=== PATIENT | female | born 1960 | race Caucasian/White ===

== ENCOUNTER 2016-03-11 12:56 | Emergency (ER) | payer MEDICARE, OTHER ==
[2016-03-11 13:07] VITALS: TEMP 97.9; BMI 27.1
[2016-03-11] MEDS ORDERED: KETOROLAC TROMETHAMINE 10 MG TAB PO ONE (13:29)
--- NOTE | 2016-03-11 13:30 | EDPRACDOC ---
- General Information Mode Of Arrival: Car - History of Present Illness Onset: friday HPI: PATIENT HAS HAD SHARP CHEST AND BACK PAIN FOR DAYS. WORSE WITH A DEEP BREATH. NO COUGH. NO FEVER. NO EXERTIONAL IN NATURE. NO TRAUMA. PATIENT HAS MS AND TAKES VALIUM DAILY. PATIENT DOES HAVE COPD AND TAKES ADVAIR Pain Location: Reports: Upper, Thoracic Pain Radiates To: Reports: None Pain Caused By: Reports: Spontaneous Currently ?: No Pain Severity: Reports: Mild Pain Quality: Reports: Aching, Sharp, Stabbing Worsened By: Reports: Breathing Associated Signs and Symptoms: Reports: None <Sam Andujar - Last Filed: 03/11/16 15:27> <Coral Harley - Last Filed: 03/11/16 17:44> - General Information Chief Complaint: Back Pain Stated Complaint: MID BACK PAIN WITH PAIN INTO CHEST CAN'T BREATH Time Seen by Provider: 03/11/16 13:24 Home Medications: Home Medications Amantadine [Symmetrel] 100 mg PO BID 06/15/12 Diazepam [Valium] 10 mg PO TID 06/15/12 Pantoprazole Sodium [Protonix] 40 mg PO DAILY #30 tab 10/25/13 Albuterol Sulfate [Ventolin Hfa] 1 - 2 puff INH Q4H PRN #1 each 03/11/16 Dimethyl Fumarate [Tecfidera] 240 mg PO BID 03/11/16 Fluticasone/Salmeterol [Advair 500-50] 1 puff INH BID 03/11/16 Hydrocodone Bit/Acetaminophen [Mazama 7.5-325 Tablet] 1 tab PO Q6H PRN 03/11/16 Ketorolac Tromethamine [Toradol] 10 mg PO Q6H PRN #20 tab 03/11/16 Allergies/Adverse Reactions: Allergies Allergy/AdvReac Type Severity Reaction Status Date / Time acetaminophen [From Percocet] Allergy Nausea/Vomi Verified 03/11/16 13:03 ting cortisone Allergy Rash-Genera Verified 03/11/16 13:03 lized oxycodone HCl [From Percocet] Allergy Nausea/Vomi Verified 03/11/16 13:03 ting promethazine HCl Allergy Confusion Verified 03/11/16 13:03 [From Phenergan] tetracycline [Tetracycline] Allergy Rash-Genera Verified 03/11/16 13:03 lized venom-honey bee Allergy Unknown Verified 03/11/16 13:03 [bee venom (honey bee)] ED Past Medical History - History Reviewed Yes Nurses notes reviewed and agree except as marked Travel Outside of [place] in the Last 3 Months?: No - Patient Medical History Neurological History: Reports: Multiple Sclerosis Respiratory History: Reports: Asthma Systemic History: Denies: Cancer Additional Past Medical History: MULTIPLE SCLEROSIS Surgical History: Reports: Hysterectomy, Hernia Surgery, Tonsillectomy/ Adnoidectomy - Social Medical History Smoking Status: Never smoker ETOH: None Substance Abuse: None Lives With: Family Lives In: Home <Sam Andujar - Last Filed: 03/11/16 15:27> EDM Review of Systems - Review of Systems ROS Negative Except as Marked: Yes All systems reviewed and were negative except as marked Constitutional: No Symptoms Reported. negative: Fever, Chills, Weakness, Fatigue, Loss of Appetite Eyes: No Symptoms Reported. negative: Redness, Blurred Vision, Double Vision, Discharge, Pain, Light Sensitive, Photophobia Ears: No Symptoms Reported. negative: Pain, Hearing Loss, Drainage, Ear Pulling Throat: No Symptoms Reported. negative: Pain, Swelling Nose: No Symptoms Reported. negative: Congestion, Bleeding, Discharge, Injection, Swelling, Deformity, Ecchymosis, Tender, Abrasion, Laceration Mouth: No Symptoms Reported. negative: Pain, Drooling Respiratory: Shortness of Breath. negative: Barky Cough, Brassy Cough, Cough, Hemoptysis, Wheezing Cardiovascular: Chest Pain. negative: Cyanosis, Edema, Orthopnea, Palpitations , PND, Syncope, Skin Mottling Gastrointestinal: No Symptoms Reported. negative: Pain, Constipation, Nausea, Vomiting, Diarrhea, Melena, Formula Intolerance Genitourinary: No Symptoms Reported. negative: Dysuria, Hematuria, Frequency, Discharge, Bleeding, Testicular Pain, Neurological: No Symptoms Reported. negative: Headache, Dizziness, Seizure, Numbness, Weakness, Speech Difficulty, Gait Difficulty Musculoskeletal: No Symptoms Reported. negative: Neck, Chestwall, Ribs, Back, Shoulder, Arm, Elbow, Forearm, Wrist, Hand, Pelvis, Hip, Femur, Knee, Leg, Ankle , Foot Integumentary: No Symptoms Reported. negative: Itching, Rash, Bruising, Wound Allergic/Immunologic: No Symptoms Reported. negative: Hives, Itching Hematologic: No Symptoms Reported. negative: Lymphadenopathy, Easy Bruising, Easy Bleeding Endocrine: No Symptoms Reported. negative: Weight Gain, Weight Loss Psychiatric: No Symptoms Reported. negative: Anxiety, Depression, Hallucinations, Insomnia, Suicidal <Sam Andujar - Last Filed: 03/11/16 15:27> - Physical Exam Constitutional: Alert (Awake), No apparent distress Oriented to: Time, Person, Place Last recorded Vital Signs: Last Vital Signs Temp 97.9 F 03/11/16 13:04 Pulse 85 03/11/16 13:04 Resp 18 03/11/16 13:04 BP 143/92 03/11/16 13:04 Pulse Ox 95 03/11/16 13:04 Oxygen Pulse Oxygen Saturation 95 O2 Device Room Air Oxygen Flow Rate Fraction of Inspired Oxygen ( FIO2) - HEENT Head: Normal ( normocephalic) Eye Exam: Normal (PERRL, EOMI, Sclera white) Oropharynx: Normal (Pharynx:Moist without exudate,Gums-no swelling) Tympanic Membrane: Normal ENT EAC: Normal TMJ: Normal Nose: No Symptoms Reported (septum midline) Neck: Normal (FROM, trachea at midline) - Respiratory/Cardiovascular Respiratory: Normal - CTA (BBS clear to auscultation without adventitious sounds ) Cardiovascular: Normal (RRR without murmur, gallop or rub) - GI Auscultation: Normal (NABS) Palpation: Normal (Soft,No rebound or guarding, non distended) Tenderness: Non tender Jorgensen's Sign: Negative - Musculoskeletal Back: Normal (Non-Tender) Extremities: Normal (Normal tone, Pulses 2+ No cyanosis or edema, FROM) - Integumentary Skin: Normal, Warm, Dry Lymphatics: Normal (no adenopathy) - Neurologic Memory Impaired: Normal Motor Function: Normal (Normal tone, Pulses 2+ No cyanosis or edema, FROM) Cranial Nerve: Normal (CN II-X11 intact sensation, strength 5/5) Cerebellar: Normal Mood Description: Normal Perception: Normal <Sam Andujar - Last Filed: 03/11/16 15:27> - Physical Exam Last recorded Vital Signs: Last Vital Signs Temp 97.9 F 03/11/16 13:04 Pulse 77 03/11/16 16:34 Resp 20 03/11/16 16:34 BP 133/74 01/23/17 16:34 Pulse Ox 97 03/11/16 16:34 Oxygen Pulse Oxygen Saturation 97 O2 Device Room Air Oxygen Flow Rate Fraction of Inspired Oxygen ( FIO2) <Coral Harley Thanh - Last Filed: 03/11/16 17:44> - EKG EKG #1 EKG Time: 13:21 -: Yes EKG interpreted by me Rate: bpm: 77 [place]: Normal Rhythm: NSR Block: None Hypertrophy: None ST: Normal <AndujarSam - Last Filed: 03/11/16 15:27> - Results 03/11/16 13:59 03/11/16 13:59 WBC 6.7 xk/uL (3.8-10.8) 03/11/16 13:59 RBC 4.78 xM/uL (4.20-5.40) 03/11/16 13:59 Hgb 14.8 g/dL (12.0-16.0) 03/11/16 13:59 Hct 43.4 % (36-47) 03/11/16 13:59 MCV 91 fL (81-99) 03/11/16 13:59 MCH 30.9 pg (27-32) 03/11/16 13:59 MCHC 34.1 g/dl (33-36) 03/11/16 13:59 RDW 13.2 % (11.5-14.5) 03/11/16 13:59 Plt Count 158 xk/uL (130-400) 03/11/16 13:59 MPV 10.1 fL (7.4-10.4) 03/11/16 13:59 Neut % (Auto) 73.3 % (45-76) 03/11/16 13:59 Lymph % (Auto) 18.9 % (17-44) 03/11/16 13:59 Burt % (Auto) 5.8 % (3-10) 03/11/16 13:59 Eos % (Auto) 0.6 % (0-5) 03/11/16 13:59 Baso % (Auto) 1.4 % (0-2) 03/11/16 13:59 Absolute Neuts (auto) 4.89 xk/uL (1.7-8.2) 03/11/16 13:59 Absolute Lymphs (auto) 1.21 xk/uL (0.65-4.75) 03/11/16 13:59 PT 10.9 SEC (9.2-11.2) 03/11/16 13:59 INR 1.1 03/11/16 13:59 APTT 25.6 SEC (22-35) 03/11/16 13:59 D-Dimer Quant (PE/DVT) 790 ng/mL (<500) H 03/11/16 13:59 Sodium 142 mEq/L (137-146) 03/11/16 13:59 Potassium 4.8 mEq/L (3.5-5.1) 03/11/16 13:59 Chloride 101 mEq/L (98-107) 03/11/16 13:59 Carbon Dioxide 31 mMOL/L (22-33) 03/11/16 13:59 Anion Gap 15 mEq/L (8-16) 03/11/16 13:59 BUN 17 MG/DL (7-17) 03/11/16 13:59 Creatinine 0.80 MG/DL (0.52-1.04) 03/11/16 13:59 Estimated GFR (MDRD) > 60 mL/min (>=60) 03/11/16 13:59 Glucose 84 MG/DL (70-99) 03/11/16 13:59 Calculated Osmolality 274 MOs/Kg (270-290) 03/11/16 13:59 Calcium 10.2 MG/DL (8.4-10.2) 03/11/16 13:59 Total Bilirubin 0.5 MG/DL (0.2-1.3) 03/11/16 13:59 AST 41 IU/L (14-36) H 03/11/16 13:59 ALT 54 IU/L (9-52) H 03/11/16 13:59 Alkaline Phosphatase 106 IU/L (38-126) 03/11/16 13:59 Creatine Kinase 84 IU/L (30-134) 03/11/16 13:59 Troponin I < 0.01 ng/mL (<.04) 03/11/16 13:59 Total Protein 7.8 G/DL (6.3-8.2) 03/11/16 13:59 Albumin 4.7 G/DL (3.5-5.0) 03/11/16 13:59 Lab Results 03/11/16 03/11/16 03/11/16 13:59 13:59 13:59 WBC 6.7 RBC 4.78 Hgb 14.8 Hct 43.4 MCV 91 MCH 30.9 MCHC 34.1 RDW 13.2 Plt Count 158 MPV 10.1 Neut % (Auto) 73.3 Lymph % (Auto) 18.9 Burt % (Auto) 5.8 Eos % (Auto) 0.6 Baso % (Auto) 1.4 Absolute Neuts (auto) 4.89 Absolute Lymphs (auto) 1.21 PT 10.9 INR 1.1 APTT 25.6 D-Dimer Quant (PE/DVT) Sodium 142 Potassium 4.8 Chloride 101 Carbon Dioxide 31 Anion Gap 15 BUN 17 Creatinine 0.80 Estimated GFR (MDRD) > 60 Glucose 84 Calculated Osmolality 274 Calcium 10.2 Total Bilirubin 0.5 AST 41 H ALT 54 H Alkaline Phosphatase 106 Creatine Kinase 84 Troponin I < 0.01 Total Protein 7.8 Albumin 4.7 03/11/16 13:59 WBC RBC Hgb Hct MCV MCH MCHC RDW Plt Count MPV Neut % (Auto) Lymph % (Auto) Burt % (Auto) Eos % (Auto) Baso % (Auto) Absolute Neuts (auto) Absolute Lymphs (auto) PT INR APTT D-Dimer Quant (PE/DVT) 790 H Sodium Potassium Chloride Carbon Dioxide Anion Gap BUN Creatinine Estimated GFR (MDRD) Glucose Calculated Osmolality Calcium Total Bilirubin AST ALT Alkaline Phosphatase Creatine Kinase Troponin I Total Protein Albumin - Diagnostic Imaging Chest Image interpreted by: Radiologist No evidence of pulmonary embolism. No acute intra thoracic abnormalities. <Coral Harley - Last Filed: 03/11/16 17:44> - Departure Yes I personally saw and evaluated the patient. Education/Counseling Given To: Patient Education/Counseling Given Regarding: Diagnosis, Treatment, Prognosis, Follow Up <Sam Andujar - Last Filed: 03/11/16 15:27> Decision Time to Discharge: 17:43 - Departure Disposition: Home <Coral Harley - Last Filed: 03/11/16 17:44> - Departure Condition: Stable Final Diagnosis: Atypical chest pain Thoracic back pain Qualifiers: Chronicity: acute Back pain laterality: midline Qualified Code(s): M54.6 - Pain in thoracic spine Instructions: Chest Pain (ED), Core Strengthening Exercises (GEN), Back Pain, Chest Wall Pain Referrals: Jeremy Harrison MD [Primary Care Provider] - One Week Prescriptions: Albuterol Sulfate [Ventolin Hfa] 1 - 2 puff INH Q4H PRN #1 each PRN Reason: SHORTNESS OF BREATH Ketorolac Tromethamine [Toradol] 10 mg PO Q6H PRN #20 tab PRN Reason: Pain
[2016-03-11] MEDS ORDERED: Albuterol/Ipratropium Neb 3 ML NEB NEB ONE (13:38)
--- NOTE | 2016-03-11 14:04 | DIRPT ---
CLINICAL DATA: Chest pain, back pain for days EXAM: CHEST 2 VIEW COMPARISON: None. FINDINGS: The heart size and mediastinal contours are within normal limits. Both lungs are clear. The visualized skeletal structures are unremarkable. IMPRESSION: No active cardiopulmonary disease. Electronically Signed By: Danielle Velarde On: 03/11/2016 14:02
[2016-03-11] MEDS ORDERED: Pharmacy Review for Metformin - IV Contrast Given SCH (15:00)
[2016-03-11 15:59] LABS: AUTOMATED BASOPHIL 1.4 % (0-2); AUTOMATED EOSINOPHIL 0.6 % (0-5); AUTOMATED LYMPH 18.9 % (17-44); AUTOMATED MONOCYTE 5.8 % (3-10); AUTOMATED NEUTROPHIL 73.3 % (45-76); MPV 10.1 fL (7.4-10.4)
[2016-03-11 16:03] LABS: PARTIAL THROMB. TIME 25.6 SEC (22-35); PT-INR 1.1
[2016-03-11 16:04] LABS: BLOOD UREA NITROGEN 17 MG/DL (7-17); CALCIUM 10.2 MG/DL (8.4-10.2); CALCULATED OSMOLALITY 274 MOs/Kg (270-290); CHLORIDE 101 mEq/L (98-107); CPK TOTAL WITH POSSIBLE MB 84 IU/L (30-134); GLUCOSE 84 MG/DL (70-99); SODIUM LEVEL 142 mEq/L (137-146); TOTAL PROTEIN 7.8 G/DL (6.3-8.2)
[2016-03-11 16:34] VITALS: PULSE 77
--- NOTE | 2016-03-11 17:41 | DIRPT ---
CLINICAL DATA: Chest and mid back pain for 4 days, multiple sclerosis EXAM: CT ANGIOGRAPHY CHEST WITH CONTRAST TECHNIQUE: Multidetector CT imaging of the chest was performed using the standard protocol during bolus administration of intravenous contrast. Multiplanar CT image reconstructions and MIPs were obtained to evaluate the vascular anatomy. CONTRAST: 100 cc Isovue 370 IV COMPARISON: CT chest without contrast 03/23/2015 and CTA chest 10/24/2009 ; correlation with chest radiograph of 03/11/2016 FINDINGS: Minimal coronary arterial calcification. Aorta normal caliber without aneurysm or dissection. Visualized upper abdomen normal appearance. Pulmonary arteries well opacified and patent. No evidence of pulmonary embolism. No thoracic adenopathy. Tiny focus of nodularity or thickening at RIGHT diaphragm is stable. Remaining lungs clear. No pulmonary infiltrate, pleural effusion, pneumothorax or additional nodule. Osseous structures unremarkable. Review of the MIP images confirms the above findings. IMPRESSION: No evidence of pulmonary embolism. No acute intra thoracic abnormalities. Electronically Signed By: Serge Mckay M.D. On: 03/11/2016 17:38
[2016-03-11 17:59] VITALS: BP 138/70
== END 2016-03-11 17:59 | disposition home or self-care (01) ==
LOC: ED 12:56
DX: R07.9 Chest pain, unspecified (principal); M54.6 Pain in thoracic spine; R05 Cough
CPT/HCPCS: 36415; 71020; 71275; 80053; 82550; 84484; 85025; 85379; 85610; 85730; 93005; 94640; 99284; A9270; A9698; J7620; J3490